=== PATIENT | male | born 1955 | race Caucasian/White ===

== ENCOUNTER 2020-11-05 08:24 | Emergency (ER) | payer OTHER ==
[2020-11-05 08:35] VITALS: BP 145/77; PULSE 65; TEMP 97.7; BMI 29.0
[2020-11-05] MEDS ORDERED: IBUPROFEN 600 MG TABLET (FP) PO ONE ×2 (09:33→09:51)
== END 2020-11-05 10:28 | disposition home or self-care (01) ==
LOC: JER 08:24
DX: S39.013A Strain of muscle, fascia and tendon of pelvis, initial encounter (principal); X50.0XXA Overexertion from strenuous movement or load, initial encounter
CPT/HCPCS: 72220-TC-FY; 99283-25